=== PATIENT | female | born 1965 | race Caucasian/White ===

== ENCOUNTER → 2017-05-01 | Emergency (ER) | payer OTHER ==
[~2017-05-01] VITALS: Ht 154.9 cm; Wt 48.5 kg
[~2017-05-01] MED LIST: SYNTHROID50 MCG; ZOLOFT50 MG
== END | disposition home or self-care (01) ==
LOC: ER 17:20
DX: M54.5 Low back pain (principal)

== ENCOUNTER 2018-02-13 10:04 | Emergency (ER) | payer OTHER ==
[~2018-02-13] VITALS: Ht 154.9 cm; Wt 48.5 kg
== END 2018-02-13 11:42 | disposition home or self-care (01) ==
LOC: ER 10:04
DX: S10.87XA Other superficial bite of other specified part of neck, initial encounter (principal); W57.XXXA Bitten or stung by nonvenomous insect and other nonvenomous arthropods, initial encounter; Y93.89 Activity, other specified; Y92.89 Other specified places as the place of occurrence of the external cause; Y99.8 Other external cause status